=== PATIENT | female | born 1965 | race Caucasian/White ===

== ENCOUNTER 2017-07-18 19:20 | Emergency (ER) | payer OTHER ==
[~2017-07-18] VITALS: Ht 167.6 cm; Wt 80.3 kg
[2017-07-18] MEDS ORDERED: AVAPRO150 MG (19:34)
[2017-07-18] MEDS ORDERED: PANADOL EXTRA500 MG (19:34)
[2017-07-18] MEDS ORDERED: PREVACID15 MG (19:35)
== END 2017-07-19 00:35 | disposition home or self-care (01) ==
LOC: ER 19:20
DX: K57.92 Diverticulitis of intestine, part unspecified, without perforation or abscess without bleeding (principal); K29.70 Gastritis, unspecified, without bleeding

== ENCOUNTER 2019-10-17 05:51 | Emergency (ER) | payer OTHER ==
[~2019-10-17] VITALS: Ht 167.6 cm; Wt 82.6 kg
[~2019-10-17 05:51] MED LIST: AVAPRO150 MG; PANADOL EXTRA500 MG; PREVACID15 MG
[2019-10-17] MEDS ORDERED: TOPROL XL50 M1 (06:06)
[2019-10-17] MEDS ORDERED: CIPRO500 MG PO (09:19)
== END 2019-10-17 09:48 | disposition home or self-care (01) ==
LOC: ER 05:51
DX: R10.31 Right lower quadrant pain (principal)

== ENCOUNTER 2021-04-22 09:56 | Emergency (ER) | payer OTHER ==
[~2021-04-22] VITALS: Ht 167.6 cm; Wt 84.8 kg
[~2021-04-22 09:56] MED LIST changes: +CIPRO500 MG PO; +TOPROL XL50 M1
[2021-04-22] MEDS ORDERED: CHILDREN'S ASPI81 MG PO (10:14)
[2021-04-22] MEDS ORDERED: KETO10TA2 PO (13:23)
== END 2021-04-22 13:51 | disposition home or self-care (01) ==
LOC: ER 09:56 → EDSEX 10:01 → ER 13:51
DX: N20.9 Urinary calculus, unspecified (principal); Z86.79 Personal history of other diseases of the circulatory system

== ENCOUNTER 2022-08-26 11:50 | Emergency (ER) | payer OTHER ==
[~2022-08-26] VITALS: Ht 165.1 cm; Wt 72.6 kg
[~2022-08-26 11:50] MED LIST changes: +CHILDREN'S ASPI81 MG PO; +IRBESARTAN150 MG; +KETO10TA2 PO; +PRAVASTATIN SOD40 MG
== END 2022-08-26 15:33 | disposition home or self-care (01) ==
LOC: ER 11:50
DX: R19.7 Diarrhea, unspecified (principal)

== ENCOUNTER 2024-03-16 15:38 | Emergency (ER) | payer OTHER ==
[~2024-03-16] VITALS: Ht 167.6 cm; Wt 74.8 kg
[2024-03-16] MEDS ORDERED: KETOROLAC TROMETHAMINE 60 MG VIAL IM ONE ×2 (17:00→17:12)
[2024-03-16 17:06] LABS: HEMATOCRIT 52.5 % (39.0-48.0); HEMOGLOBIN 17.4 g/dL (13-16.00); MEAN CELL VOLUME 88.4 fL (80.0-100.00); MEAN CORPUSCULAR HEMOGLOBIN 29.3 pg (27.00-32.0); MEAN CORPUSCULAR HGB CONC 33.1 g/dl (32.0-36.0); PLATELET COUNT 290 K/uL (150-450); RED BLOOD COUNT 5.94 M/uL (4.00-6.00); RED CELL DISTRIBUTION WIDTH 13.8 % (11.5-14.5)
[2024-03-16] MEDS ORDERED: BARIUM SULFATE 450 ML ORAL.SUSP PO ONE (17:13)
[2024-03-16 17:19] LABS: CALCIUM 9.5 mg/dL (8.5-10.1); CREATININE SERUM 1.63 mg/dL (0.70-1.30); GFR 43.98; POTASSIUM 4.21 mEq/L (3.5-5.1)
[2024-03-16] MEDS ORDERED: LIDOCAINE HCL 1% 10ML VIAL ONE (17:38)
[2024-03-16 18:30] LABS: URINE APPEARANCE Cloudy; URINE BILIRRUBIN Negative (NEGATIVE); URINE BLOOD Large; URINE COLOR Yellow; URINE GLUCOSE Negative (NEGATIVE); URINE KETONE Negative (NEGATIVE); URINE LEUKOCYTE Negative; URINE NITRATE Negative; URINE PROTEIN Trace (NEGATIVE)
[2024-03-16 18:37] LABS: URINE BACTERIA 25.7 uL (0.0-1933); URINE EPITHELIAL CELLS 12.4 uL (0.0-38.8); URINE RBC 160.9 uL (0.0-20.8); URINE WBC 12.6 uL (0.0-23.2)
[2024-03-16] MEDS ORDERED: TAMSULOSIN HCL 0.4 MG CAP PO ONE ×2 (22:45→23:04)
== END 2024-03-16 23:37 | disposition home or self-care (01) ==
LOC: ER 15:41
PROVIDERS: Emergency Medicine
DX: N20.1 Calculus of ureter (principal); K57.30 Diverticulosis of large intestine without perforation or abscess without bleeding; I10 Essential (primary) hypertension